=== PATIENT | male | born 1985 | race Caucasian/White ===

== ENCOUNTER 2019-01-24 17:52 | Emergency (ER) | payer OTHER ==
[~2019-01-24] VITALS: Ht 175.3 cm; Wt 75.0 kg
[~2019-01-24 17:52] MED LIST: NAPROSYN500 MG PO; NO MEDS
[2019-01-24] MEDS ORDERED: AMOXICILLIN500 MG PO (18:28)
[2019-01-24] MEDS ORDERED: PERCOCET 5/325M1 TAB PO (18:28)
[2019-01-24 19:47] VITALS: BP 134/77
== END 2019-01-24 19:46 | disposition home or self-care (01) ==
LOC: ED 17:52
DX: K02.9 Dental caries, unspecified (principal); F17.200 Nicotine dependence, unspecified, uncomplicated; K08.89 Other specified disorders of teeth and supporting structures

== ENCOUNTER 2020-01-27 | Emergency (ER) | payer SELFPAY ==
[~2020-01-27] MED LIST changes: +AMOXICILLIN500 MG PO; +PERCOCET 5/325M1 TAB PO
[2020-01-27] MEDS ORDERED: AMOX/K CLAV875 M1 PO (15:16)
[2020-01-27] MEDS ORDERED: HYDROCO/APAP1 TA9 PO (15:16)
== END 2020-01-27 15:35 | disposition home or self-care (01) | DRG 605 ==
DX: S61.552A Open bite of left wrist, initial encounter (principal); L08.9 Local infection of the skin and subcutaneous tissue, unspecified; F17.210 Nicotine dependence, cigarettes, uncomplicated; W55.01XA Bitten by cat, initial encounter

== ENCOUNTER 2021-02-27 20:38 | Emergency (ER) | payer OTHER ==
[~2021-02-27] VITALS: Ht 175.3 cm; Wt 54.0 kg
[~2021-02-27 20:38] MED LIST changes: +AMOX/K CLAV875 M1 PO; +HYDROCO/APAP1 TA9 PO
[2021-02-27] MEDS ORDERED: KEFLEX500 M1 PO (21:02)
[2021-02-27 21:10] VITALS: BP 144/89
== END 2021-02-27 21:10 | disposition home or self-care (01) ==
LOC: ED 20:38
DX: S91.311A Laceration without foreign body, right foot, initial encounter (principal); L03.115 Cellulitis of right lower limb; F17.200 Nicotine dependence, unspecified, uncomplicated; W22.8XXA Striking against or struck by other objects, initial encounter; Y92.009 Unspecified place in unspecified non-institutional (private) residence as the place of occurrence of the external cause

== ENCOUNTER 2021-04-19 16:19 | Emergency (ER) | payer OTHER ==
[~2021-04-19] VITALS: Ht 175.3 cm; Wt 70.0 kg
[~2021-04-19 16:19] MED LIST changes: +KEFLEX500 M1 PO
[2021-04-19] MEDS ORDERED: KEFLEX500 MG PO (16:39)
[2021-04-19] MEDS ORDERED: HYDROCO/APAP1 TA9 PO (16:39)
[2021-04-19 16:54] VITALS: BP 167/80
== END 2021-04-19 16:54 | disposition home or self-care (01) ==
LOC: ED 16:19
DX: K04.7 Periapical abscess without sinus (principal); K02.9 Dental caries, unspecified; F17.210 Nicotine dependence, cigarettes, uncomplicated

== ENCOUNTER 2021-06-04 13:16 | Emergency (ER) | payer OTHER ==
[~2021-06-04] VITALS: Ht 175.3 cm; Wt 73.0 kg
[~2021-06-04 13:16] MED LIST changes: +KEFLEX500 MG PO
[2021-06-04] MEDS ORDERED: KEFLEX500 MG PO (14:44)
[2021-06-04] MEDS ORDERED: CIPROFLOXACN500 MG PO (14:44)
[2021-06-04 15:05] VITALS: BP 131/71
== END 2021-06-04 15:05 | disposition home or self-care (01) ==
LOC: ED 13:16
DX: S90.461A Insect bite (nonvenomous), right great toe, initial encounter (principal); L03.115 Cellulitis of right lower limb; F17.210 Nicotine dependence, cigarettes, uncomplicated; W57.XXXA Bitten or stung by nonvenomous insect and other nonvenomous arthropods, initial encounter

== ENCOUNTER 2021-06-10 13:29 | Emergency (ER) | payer OTHER ==
[~2021-06-10] VITALS: Ht 175.3 cm; Wt 72.7 kg
[~2021-06-10 13:29] MED LIST changes: +CIPROFLOXACN500 MG PO
[2021-06-10 13:30] VITALS: BP 147/99
== END 2021-06-10 14:16 | disposition home or self-care (01) ==
LOC: ED 13:29
DX: B35.3 Tinea pedis (principal); F17.200 Nicotine dependence, unspecified, uncomplicated

== ENCOUNTER 2021-09-25 14:29 | Emergency (ER) | payer OTHER ==
[~2021-09-25] VITALS: Ht 175.3 cm; Wt 60.0 kg
[2021-09-25 15:41] LABS: HEMATOCRIT 44.6 % (39.0-50.0); HEMOGLOBIN 14.8 g/dl (14.0-18.0); IMMATURE GRANULOCYTES 0.1 % (0.0-5.0); MEAN CORPUSCULAR HGB CONC 33.2 g/dL CAL (32.0-36.0); NEUT# 8.15 thou/uL (1.82-7.42); RED BLOOD COUNT 4.63 mill/uL (4.70-6.10); RED CELL DISTRI WIDTH 12.9 % (11.5-15.5)
[2021-09-25 15:43] LABS: MEAN CELL VOLUME 96.3 fL CALC (80.0-100.0)
[2021-09-25 15:53] LABS: ALBUMIN 4.1 g/dL (3.2-5.0); ALKALINE PHOSPHATASE 74 u/l (38-126); BUN 10 mg/dL (9-20); BUN/CREATININE RATIO 10 (12-20 (CALC)); CHLORIDE 99 mmol/l (95-108); GFR > 60 ML/MIN (>=60 (CALC)); GFR FOR AFR.AMER. > 60 ML/MIN (>=60 (CALC)); POTASSIUM 4.6 mmol/l (3.5-5.1); SGOT/AST 22 u/l (17-59); TOTAL PROTEIN 7.1 g/dL (6.3-8.2)
[2021-09-25 16:03] LABS: ANION GAP 9 (6-22 (CALC)); BILIRUBIN, TOTAL 0.9 mg/dL (0.0-1.4); CARBON DIOXIDE 34 mmol/l (22-30); SODIUM 137 mmol/l (137-146)
[2021-09-25] MEDS ORDERED: CLEOCIN150 M1 PO (18:47)
[2021-09-25 19:17] VITALS: BP 143/78
== END 2021-09-25 19:30 | disposition left against medical advice (07) ==
LOC: ED 14:29
PROVIDERS: Emergency Medicine
DX: L03.116 Cellulitis of left lower limb (principal); F17.210 Nicotine dependence, cigarettes, uncomplicated; Z91.19 Patient's noncompliance with other medical treatment and regimen

== ENCOUNTER 2022-04-08 12:42 | Emergency (ER) | payer OTHER ==
[~2022-04-08] VITALS: Ht 175.3 cm; Wt 86.0 kg
[~2022-04-08 12:42] MED LIST changes: +CLEOCIN150 M1 PO
[2022-04-08 12:47] VITALS: BP 171/96
[2022-04-08] MEDS ORDERED: CYCLOBENZAPRINE10 MG PO (12:52)
[2022-04-08 13:00] VITALS: BP 171/96
== END 2022-04-08 13:02 | disposition home or self-care (01) ==
LOC: ED 12:42
DX: M54.2 Cervicalgia (principal); F17.200 Nicotine dependence, unspecified, uncomplicated

== ENCOUNTER 2022-10-09 11:50 | Emergency (ER) | payer OTHER ==
[~2022-10-09] VITALS: Ht 175.3 cm; Wt 75.0 kg
[~2022-10-09 11:50] MED LIST changes: +CYCLOBENZAPRINE10 MG PO
[2022-10-09 12:00] VITALS: BP 136/93
[2022-10-09 12:15] VITALS: BP 141/90
[2022-10-09] MEDS ORDERED: BACTRIM DS1 TAB PO (12:28)
[2022-10-09 12:38] VITALS: BP 136/93
== END 2022-10-09 12:51 | disposition home or self-care (01) ==
LOC: ED 11:50
DX: L02.01 Cutaneous abscess of face (principal); F17.210 Nicotine dependence, cigarettes, uncomplicated

== ENCOUNTER 2022-12-19 07:30 | Emergency (ER) | payer OTHER ==
[~2022-12-19] VITALS: Ht 175.3 cm; Wt 72.6 kg
[~2022-12-19 07:30] MED LIST changes: +BACTRIM DS1 TAB PO
[2022-12-19 07:41] VITALS: BP 133/91
[2022-12-19 10:11] VITALS: BP 133/91
== END 2022-12-19 10:16 | disposition home or self-care (01) ==
LOC: ED 07:30
DX: H57.11 Ocular pain, right eye (principal); F17.200 Nicotine dependence, unspecified, uncomplicated

== ENCOUNTER 2023-05-12 19:01 | Emergency (ER) | payer OTHER ==
[~2023-05-12] VITALS: Ht 175.3 cm; Wt 77.0 kg
[2023-05-12 19:15] VITALS: BP 125/86
[2023-05-12] MEDS ORDERED: ULTRAM50 MG PO (19:23)
[2023-05-12] MEDS ORDERED: AMOXICILLIN500 MG PO (19:23)
== END 2023-05-12 20:01 | disposition home or self-care (01) ==
LOC: ED 19:01
DX: K04.7 Periapical abscess without sinus (principal); K02.9 Dental caries, unspecified; F17.200 Nicotine dependence, unspecified, uncomplicated

== ENCOUNTER 2023-06-14 07:16 | Emergency (ER) | payer OTHER ==
[~2023-06-14] VITALS: Ht 175.3 cm; Wt 81.6 kg
[~2023-06-14 07:16] MED LIST changes: +ULTRAM50 MG PO
[2023-06-14 07:25] VITALS: BP 135/97
[2023-06-14 07:30] VITALS: BP 151/102
[2023-06-14 07:45] VITALS: BP 138/87
[2023-06-14] MEDS ORDERED: CLEOCIN300 MG PO (08:05)
[2023-06-14 08:18] VITALS: BP 140/97
[2023-06-14 08:21] VITALS: BP 140/97
== END 2023-06-14 08:21 | disposition home or self-care (01) ==
LOC: ED 07:16
DX: K04.7 Periapical abscess without sinus (principal); F17.210 Nicotine dependence, cigarettes, uncomplicated

== ENCOUNTER 2023-06-25 10:57 | Emergency (ER) | payer OTHER ==
[2023-06-25] VITALS (13 sets, daily range): BP systolic 80–146; BP diastolic 41–96
[~2023-06-25] VITALS: Ht 175.3 cm; Wt 77.2 kg
[~2023-06-25 10:57] MED LIST changes: +CLEOCIN300 MG PO
[2023-06-25] MEDS ORDERED: CLEOCIN300 MG PO (11:12)
[2023-06-25 11:41] LABS: EOS% 8.6 % (0-8); HEMATOCRIT 47.6 % (39.0-50.0); HEMOGLOBIN 15.8 g/dl (14.0-18.0); IMMATURE GRANULOCYTES 0.4 % (0.0-5.0); LYMPH% 27.8 % (15-41); MEAN CELL VOLUME 93.2 fL CALC (80.0-100.0); MEAN CORPUSCULAR HGB 30.9 pG CALC (26.0-32.0); MEAN CORPUSCULAR HGB CONC 33.2 g/dL CAL (32.0-36.0); MONO% 10.3 % (2-13); NEUT# 3.56 thou/uL (1.82-7.42); NEUT% 51.9 % (42-76); RED BLOOD COUNT 5.11 mill/uL (4.70-6.10); RED CELL DISTRI WIDTH 12.8 % (11.5-15.5)
[2023-06-25 12:03] LABS: ALBUMIN 4.5 g/dL (3.2-5.0); ALKALINE PHOSPHATASE 75 u/l (38-126); ANION GAP 14 (6-22 (CALC)); BILIRUBIN, TOTAL 0.7 mg/dL (0.2-1.3); BUN 11 mg/dL (9-20); BUN/CREATININE RATIO 12 (12-20 (CALC)); CHLORIDE 108 mmol/l (95-108); GFR FOR AFR.AMER. > 60 ML/MIN (>=60 (CALC)); GFR OTHER RACES > 60 ML/MIN (>=60 (CALC)); POTASSIUM 3.8 mmol/l (3.5-5.1); SGOT/AST 29 u/l (17-59); SODIUM 143 mmol/l (137-146); TOTAL PROTEIN 7.2 g/dL (6.3-8.2)
[2023-06-25 12:41] LABS: CARBON DIOXIDE 25 mmol/l (22-30)
[2023-06-25 14:51] LABS: URINE BILIRUBIN - DIPSTICK NEGATIVE (NEGATIVE); URINE COLOR YELLOW; URINE GLUCOSE - DIPSTICK NEGATIVE (NEGATIVE); URINE KETONE Trace mg/dL (NEGATIVE); URINE PH 5.5 (4.5-8.0); URINE PROTEIN - DIPSTICK 30 mg/dL (NEG-TRACE); URINE SPECIFIC GRAVITY >=1.030
[2023-06-25 14:52] LABS: URINE BLOOD DIPSTICK NEGATIVE (NEGATIVE); URINE EPITHELIAL CELLS FEW EPI/hpf (0-FEW); URINE LEUK ESTERASE NEGATIVE (NEGATIVE); URINE MUCUS MODERATE hpf (NONE-FEW); URINE NITRITE - DIPSTICK NEGATIVE (Negative)
[2023-06-25] MEDS ORDERED: KEPPRA250 M1 PO (14:59)
== END 2023-06-25 15:29 | disposition home or self-care (01) ==
LOC: ED 10:57
PROVIDERS: Family Medicine
DX: R56.9 Unspecified convulsions (principal); F17.210 Nicotine dependence, cigarettes, uncomplicated
CPT/HCPCS: J1953

== ENCOUNTER 2023-08-06 23:43 | Emergency (ER) | payer OTHER ==
[~2023-08-06] VITALS: Ht 175.3 cm; Wt 83.0 kg
[~2023-08-06 23:43] MED LIST changes: +KEPPRA250 M1 PO
[2023-08-07] VITALS: BP 141/90
[2023-08-07 00:55] VITALS: BP 141/90
== END 2023-08-07 01:10 | disposition home or self-care (01) ==
LOC: ED 23:43
DX: S61.411A Laceration without foreign body of right hand, initial encounter (principal); W25.XXXA Contact with sharp glass, initial encounter

== ENCOUNTER 2023-11-27 07:37 | Emergency (ER) | payer OTHER ==
[~2023-11-27] VITALS: Ht 175.3 cm; Wt 66.0 kg
[2023-11-27] MEDS ORDERED: NAPROXEN500 MG PO (09:42)
[2023-11-27 09:55] VITALS: BP 140/94
== END 2023-11-27 09:55 | disposition home or self-care (01) ==
LOC: ED 07:37
DX: M65.262 Calcific tendinitis, left lower leg (principal); F17.210 Nicotine dependence, cigarettes, uncomplicated

== ENCOUNTER 2025-01-01 10:24 | Emergency (ER) | payer SELFPAY ==
[~2025-01-01] VITALS: Ht 175.3 cm; Wt 68.2 kg
[~2025-01-01 10:24] MED LIST changes: +NAPROXEN375 MG PO; +NAPROXEN500 MG PO; +PENICILLN VK500 MG PO
[2025-01-01 10:32] VITALS: BP 143/95
[2025-01-01 10:45] VITALS: BP 125/84
[2025-01-01] MEDS ORDERED: AMOX/K CLAV875 M1 PO (10:53)
[2025-01-01 10:57] VITALS: BP 125/84
== END 2025-01-01 11:07 | disposition home or self-care (01) | DRG 153 ==
LOC: ED 10:24
DX: J32.9 Chronic sinusitis, unspecified (principal); F17.200 Nicotine dependence, unspecified, uncomplicated